=== PATIENT | male | born 1975 | race Two or more races ===

== ENCOUNTER 2024-12-30 15:15 | Emergency (ER) | payer MEDICAID, SELFPAY ==
[2024-12-30 15:16] VITALS: BMI 27.3
[2024-12-30 15:24] VITALS: BP 102/49; PULSE 106; RESP 18; TEMP 36.5; O2SAT 95
--- NOTE | 2024-12-30 15:35 | EDRME_ITS ---
Rapid Medical Screening Exam [facility] Arrival date/time: 12/30/24 15:15 Chief Complaint: Eye Problems Vital signs: Vital Signs Temperature 97.7 F 12/30/24 15:24 Pulse Rate 106 H 12/30/24 15:24 Respiratory Rate 18 12/30/24 15:24 Blood Pressure 102/49 L 12/30/24 15:24 Pulse Oximetry (%) 95 12/30/24 15:24 Oxygen Delivery Method Room Air 12/30/24 15:24 [facility] Narrative: 59-year-old male patient presents emergency department with complaint of loss of vision to right eye that began 5 days ago. He denies headache, he denies trauma. He denies any alleviating or aggravating factors. He denies previous history of loss of vision to any of his eyes. Rapid medical evaluation done on patient patient will need to be seen by provider who put in the appropriate test needed. Exam: FRIDA MARC Clinical Impression: Change to vision to right eye
[2024-12-30 18:49] VITALS: BP 105/66; PULSE 89; RESP 15; TEMP 36.7; O2SAT 94
--- NOTE | 2024-12-30 20:57 | PD.EDEYE ---
ED Eye Problem RME/HPI General Chief complaint: Eye Problems Stated complaint: R EYE BLURRINESS Time Seen by Provider: 12/30/24 16:08 Arrival date/time: 12/30/24 15:15 RME / HPI RME / HPI Narrative: 59-year-old male patient presents emergency department with complaint of loss of vision to right eye that began 5 days ago. He denies headache, he denies trauma. He denies any alleviating or aggravating factors. He denies previous history of loss of vision to any of his eyes. Rapid medical evaluation done on patient patient will need to be seen by provider who put in the appropriate test needed. Dr. Canseco?s Main ED Evaluation: 49yo male with a history of DMII presents to the ED for a chief complaint of loss of vision to the right eye. Patient has been here for almost 6 hours prior to my evaluation. Patient states he initially started seeing cobwebs to the right eye on 12/10/24, reporting it progressively got worse 5 days ago when he started seeing black spots . Patient was evaluated by his PCP for this 15 days ago, has been referred to an wildlife control agent (does not know the name), and is waiting to get an appointment. Patient denies any eye pain, headache, or any other associated symptoms. NKA. Related Data Previous Rx's ?Medication ?Instructions ?Recorded sulfamethoxazole 800 1 tab PO Q12H #14 tabs 07/28/20 mg-trimethoprim 160 mg tablet (Bactrim DS) Allergies Allergy/AdvReac Type Severity Reaction Status Date / Time No Known Allergies Allergy Verified 12/30/24 15:21 Review of Systems Review of Systems Systems Reviewed: All systems reviewed, normal except as documented Past Medical History Past Medical History CARDIAC: Negative Congestive Heart Failure RESPIRATORY: Negative Chronic Obstructive Pulmonary Disease (COPD) GENITOURINARY: Negative Renal Disease ENDOCRINE: Negative Diabetes Mellitus Type 1 or Diabetes Mellitus Type 2 Social History SMOKING STATUS: Never smoker ED Exam Narrative Physical exam: Generally patient is alert in no obvious distress eyes pupils equal round reactive to light extraocular movements are intact patient has movement and light perception to the right eye. Visual acuity to the left eye is 2040, visual acuity to both eyes is 20/30 and patient has no perception of the chart with the right eye. Funduscopic exam shows evidence for a vitreous hemorrhage. Course Quality Measures none Vital Signs Vital signs: Vital Signs Temperature 97.7 F 12/30/24 15:24 Pulse Rate 106 H 12/30/24 15:24 Respiratory Rate 18 12/30/24 15:24 Blood Pressure 102/49 L 12/30/24 15:24 Pulse Oximetry (%) 95 12/30/24 15:24 Oxygen Delivery Method Room Air 12/30/24 15:24 Eye MDM Narrative MDM Narrative:: Scribe Attestation: 12/30/24 - Zenaida Griggs am scribing for and in the presence of Dr. Canseco. After multiple attempts with multiple facilities I was able to speak with wildlife control agent Dr. Garcia from [facility]. He has graciously agreed to see this patient as an outpatient. Patient is to call phone number [phone] today for appointment. This patient has eloped from the emergency room but he will be called and be given this information. Patient data External records reviewed:: [facility] previous records (Per chart review, patient has no relevant previous ED visits.) Clinical information provided by:: patient Social determinants that could affect healthcare access:: none Patient has the following chronic illnesses:: DMII How is presenting disease/condition affected by chronic disease/condition?: exacerbated by Evaluation data The following diagnostics were reviewed and interpreted by me:: other (specify) (none) Lab and/or radiology exams considered but not ordered:: none Interpretation Summary: none Medications / Prescriptions Medications or Prescriptions considered but not ordered:: none Medication administrations:: none Consultations Consultation(s) initiated? (list below): No Diagnosis Eye Problem Differential Diagnosis: other (See MDM) Most likely diagnosis given after review of the tests above:: see clinical impression below Admission Indicated Admission indicated?: not indicated Admission Request Was there a request for admission?: No Disposition Plan Disposition Plan: other (specify) (Elopement) Discharge Plan Plan Patient Disposition: Elopement Prescriptions/Referrals Prescriptions/Med Rec: No Action sulfamethoxazole-trimethoprim [Bactrim DS] 800-160 mg tablet 1 tab PO Q12H Qty: 14 0RF Referrals: Bandar Mason [Primary Care Provider] - In 1 week Problem List Clinical Impression: Vitreous hemorrhage Patient/Caregiver Discharge Instructions Additional Instructions: Patient is to call wildlife control agent Dr. Garcia from [facility] at phone number [phone] today for urgent appointment time. Print Language: Wolof
--- NOTE | 2024-12-30 23:49 | PC.NURSE ---
[id number] RECEIVED CALL FROM [facility] AT THIS TIME ,PT CLINICALS WERE GIVEN.
--- NOTE | 2024-12-30 23:52 | PC.NURSE ---
CALLED PATIENT IN THE LOBBY AND OUTSIDE, NO ANSWER RECEIVED.
--- NOTE | 2024-12-31 | PC.NURSE ---
CALLED PATIENT TO PHONE NUMBER ON FACE SHEET, PATIENT STATED THAT HE HAD LEFT ED AND WAS ALREADY HOME. PATIENT STATED THAT HE HAD GOTTEN A RIDE TO THE HOSPITAL AND DID NOT HAVE A RIDE TO RETURN TO THE HOSPITAL AT THIS TIME. PATIENT STATED THAT HE WOULD TRY TO RETURN IN THE AM. CHARGE NURSE RACHEL MADE AWARE.
--- NOTE | 2024-12-31 00:06 | PC.NURSE ---
0007 [facility] DECLINED PT DUE TO NO SPECIALTY SERVICE AVAILABLE.
== END 2024-12-30 23:31 | disposition left against medical advice (07) ==
PROVIDERS: Emergency Provider Emergency Medicine; PCP Physician Assistant
DX: H43.13 Vitreous hemorrhage, bilateral (principal); E11.9 Type 2 diabetes mellitus without complications
CPT/HCPCS: 99281